=== PATIENT | male | born 1990 | race African-American/Black ===

== ENCOUNTER 2017-09-03 16:49 | Emergency (ER) | payer OTHER ==
[~2017-09-03] VITALS: Ht 182.9 cm; Wt 73.6 kg
[2017-09-03] MEDS ORDERED: IBUPROFEN 800 MG TABLET PO ONE (17:15)
[2017-09-03] MEDS ORDERED: POVIDONE-IODINE 10% 15 ML SOLUTION UD TP ONE (17:15)
[2017-09-03 17:20] VITALS: BP 120/89
[2017-09-03] MEDS ORDERED: LORA2TAB2 PO (17:24)
== END 2017-09-03 17:33 | disposition home or self-care (01) ==
LOC: EMS 16:51
DX: S51.811A Laceration without foreign body of right forearm, initial encounter (principal); Z88.0 Allergy status to penicillin; W25.XXXA Contact with sharp glass, initial encounter; Y93.89 Activity, other specified; Y92.89 Other specified places as the place of occurrence of the external cause; Y99.8 Other external cause status
CPT/HCPCS: 99283